=== PATIENT | male | born 1975 | race Caucasian/White ===

== ENCOUNTER 2022-07-08 08:18 | Inpatient (IN) | payer BC ==
[2022-07-03 09:28] LABS: BASOPHILS % 0.4 % (0.0-1.0); EOSINOPHILS % 0.7 % (0.0-6.0); HEMATOCRIT 39.7 % (38.2-49.6); HEMOGLOBIN 13.5 g/dL (14.0-18.0); LYMPHOCYTES # (AUTO) 1.9 (1.0-3.2); LYMPHOCYTES % 34.2 % (18.0-39.1); MEAN CORPUSCULAR HEMOGLOBIN 32.4 pg (28-32); MEAN CORPUSCULAR VOLUME 95.2 fL (81-99); MONOCYTES # (AUTO) 0.7 (0.2-0.8); NEUTROPHILS % 52.7 % (38.7-80.0); PLATELET COUNT 249 x10e3/uL (140-360); RED BLOOD COUNT 4.17 x10e6/uL (4.3-5.7); RED CELL DISTRIBUTION WIDTH 11.9 % (11.7-14.4)
[2022-07-03 09:54] LABS: ANION GAP 14.9 mmol/L (8-16); CALCIUM 9.8 mg/dL (8.4-10.2); CREATININE, SERUM 0.99 mg/dL (0.72-1.25); POTASSIUM 3.9 mmol/L (3.5-5.1)
[~2022-07-08] VITALS: Ht 185.4 cm; Wt 174.2 kg
[2022-07-08] MEDS: LACTATED RINGER'S 1,000 ML IV SCH ×2 (07:30→16:06)
[~2022-07-08 08:18] MED LIST: AMLODIPINE BESYL5 MG PO; ASPIRIN81 MG PO; HYDROCODONE/APAP 7.5MG-325MG 1 EA TAB PO PRN; LACTATED RINGER'S 1,000 ML ONE; LEVOFLOXACIN 500MG/D5W 100ML 100 ML IV ONE; LISINOPRIL-HCT1 EAC1 PO; LOVAZA1 GM PO; MELOXICAM7.5 MG PO; SCOPOLAMINE 1 MG PATCH ONE; SCOPOLAMINE 1 MG PATCH TOP SCH; TYLENOL325 MG PO
[2022-07-08] MEDS ORDERED: ACETAMINOPHEN 1000 MG/100 ML 100 ML IV ONE (10:23)
[2022-07-08] MEDS ORDERED: BUPIVACAINE 0.25% 30ML SDV ONE (10:23)
[2022-07-08] MEDS ORDERED: SUGAMMADEX SODIUM 200 MG/2 ML VIAL IV ONE (10:23)
[2022-07-08] MEDS ORDERED: BUPIVACAINE 0.5%/EPI 30 ML SDV INJ ONE (11:30)
[2022-07-08] MEDS ORDERED: PROPOFOL IV EMULSION 10 MG/ML 20 ML VIAL ONE (12:32)
[2022-07-08] MEDS ORDERED: ROCURONIUM BROMIDE 10 MG/ML 5ML VIAL IV ONE (12:32)
[2022-07-08] MEDS ORDERED: POVIDONE IODINE 0.05% 0.05 % ML PO ONE (12:32)
[2022-07-08] MEDS ORDERED: ONDANSETRON HCL INJ 2MG/ML 2ML 2 MG/ML VIAL ONE (12:32)
[2022-07-08] MEDS ORDERED: SUCCINYLCHOLINE CHLORIDE 20 MG/ML 10ML VIAL ONE (12:32)
[2022-07-08] MEDS ORDERED: PHENYLEPHRINE HCL 1% 10 MG/ML VIAL ONE (12:32)
[2022-07-08] MEDS ORDERED: EPHEDRINE SULFATE INJ 50 MG/ML VIAL ONE (12:32)
[2022-07-08] MEDS ORDERED: DEXAMETHASONE SOD PHOS INJ 4 MG/ML SDV ONE (12:32)
[2022-07-08] MEDS ORDERED: SEVOFLURANE INHAL SOLN 250 ML PEN BTL ONE (12:32)
[2022-07-08] MEDS ORDERED: FENTANYL CITRATE/PF 100MCG/2 ML INJ ONE ×2 (13:39→14:33)
[2022-07-08 14:56] VITALS: BP 146/85
[2022-07-08 15:18] VITALS: BP 146/85
[2022-07-08 15:30] VITALS: BP 146/85
[2022-07-08 16:00] VITALS: BP 114/63
[2022-07-08] MEDS: Morphine 2mg Syringe 2 MG/ML SYR IV PRN (16:06)
[2022-07-08] MEDS: ONDANSETRON HCL INJ 2MG/ML 2ML 2 MG/ML VIAL IV PRN (16:06)
[2022-07-08 20:00] VITALS: BP 144/84
[2022-07-08] MEDS: ENOXAPARIN SOD INJ 40 MG/0.4 ML SYR SC SCH (20:38)
[2022-07-08 21:00] VITALS: BP 144/84
[2022-07-09] VITALS: BP 130/90
[2022-07-09] MEDS: LACTATED RINGER'S 1,000 ML IV SCH ×3 (00:35→15:59)
[2022-07-09] MEDS: ONDANSETRON HCL INJ 2MG/ML 2ML 2 MG/ML VIAL IV PRN ×3 (00:35→14:25)
[2022-07-09 04:00] VITALS: BP 132/92
[2022-07-09 05:38] LABS: BASOPHILS % 0.1 % (0.0-1.0); HEMOGLOBIN 14.1 g/dL (14.0-18.0); LYMPHOCYTES # (AUTO) 1.5 (1.0-3.2); LYMPHOCYTES % 13.4 % (18.0-39.1); MEAN CORPUSCULAR HEMOGLOBIN 33.6 pg (28-32); MEAN CORPUSCULAR HGB CONC 35.3 g/dL (31-35); MEAN CORPUSCULAR VOLUME 95.2 fL (81-99); MONOCYTES # (AUTO) 0.9 (0.2-0.8); MONOCYTES % 7.7 % (4.4-11.3); NEUTROPHILS # (AUTO) 8.8 (2.1-6.9); NEUTROPHILS % 78.4 % (38.7-80.0); PLATELET COUNT 273 x10e3/uL (140-360); RED CELL DISTRIBUTION WIDTH 11.9 % (11.7-14.4)
[2022-07-09 06:06] LABS: ALBUMIN 3.9 g/dL (3.5-5.0); ANION GAP 20.1 mmol/L (8-16); CALCIUM 9.7 mg/dL (8.4-10.2); CREATININE, SERUM 0.9 mg/dL (0.72-1.25); MAGNESIUM 1.7 MG/DL (1.3-2.1); PHOSPHORUS 3.6 MG/DL (2.3-4.7); POTASSIUM 4.1 mmol/L (3.5-5.1)
[2022-07-09] MEDS: Morphine 2mg Syringe 2 MG/ML SYR IV PRN (06:50)
[2022-07-09 08:29] VITALS: BP 145/92
[2022-07-09] MEDS: ENOXAPARIN SOD INJ 40 MG/0.4 ML SYR SC SCH (08:37)
[2022-07-09 09:00] VITALS: BP 145/92
[2022-07-09 12:07] VITALS: BP 151/92
[2022-07-09 16:39] VITALS: BP 150/88
== END 2022-07-09 17:54 | disposition home or self-care (01) | DRG 621 ==
LOC: OR 08:18 → PACU V 13:47 → MED/SURG3 14:56
PROVIDERS: ADMIT Internal Medicine; ATTEND Internal Medicine
PROC: 0DB64Z3 Excision of Stomach, Percutaneous Endoscopic Approach, Vertical (ICD-10-PCS; principal; 2022-07-08 12:15)
DX: E66.01 Morbid (severe) obesity due to excess calories (principal); Z68.43 Body mass index [BMI] 50.0-59.9, adult; I11.9 Hypertensive heart disease without heart failure; M16.11 Unilateral primary osteoarthritis, right hip; G47.33 Obstructive sleep apnea (adult) (pediatric); Z20.822 Contact with and (suspected) exposure to COVID-19
CPT/HCPCS: 0223U; 36415; 80048; 80053; 83735; 84100; 85025; 93005; 94799; C1713; J0330; J1100; J1650; J1956; J2270; J2370; J2405